=== PATIENT | female | born 1995 | race American Indian/Alaskan Native ===

== ENCOUNTER 2021-09-22 19:29 | Emergency (ER) | payer SELFPAY ==
[2021-09-22 19:42] VITALS: BP 168/118
--- NOTE | 2021-09-22 23:30 | Emergency Department Report ---
ED Laceration HPI - HPI Chief Complaint: Wound/Laceration Stated Complaint: TOE INJURY Time Seen by Provider: 09/22/21 19:57 Occurred When: Today Severity: mild Tetanus Status: Up to Date Laceration Symptoms: No Foreign Body Sensation, No Numbness, No Weakness, No Pain Other History: 25-year-old -[place] female was getting out of the shower when she slipped causing her foot to go and strike the corner wall between the second and third phalanges resulting in a laceration. She was advised to come to emergency department for possible suture but reports no pain and only scant bleeding. There is no history of numbness tingling neuropathy to her lower extremities she reports no known history of diabetes no immunocompromising conditions and takes no medications. ED Review of Systems ROS: Stated complaint: TOE INJURY Other details as noted in HPI Comment: All other systems reviewed and negative ED Past Medical Hx - Past Medical History Previous Medical History?: No Laceration Physical Exam - Exam General: Vital signs noted. No distress. Alert and acting appropriately. Wound Length (cm): 1 Laceration Location: Lower Extremity Full Body Front + Back: 1 - 1cm laceration between the second and third phalanges only visible wounds. Details of apart. No bleeding. Sensation is intact capillary refills are brisk. The lacerated site is fully closed with the phalanges and not being manipulated. There is no evidence of any foreign bodies Laceration Exam: Yes Normal Distal CMS, No Foreign Body, No Exposed Tendon, Vessel, or Nerve, No Tendon Injury ED Course Vital Signs 09/22/21 19:41 Temperature 98.6 F Pulse Rate 83 Respiratory 18 Rate Blood Pressure 168/118 [Left] O2 Sat by Pulse 98 Oximetry ED Medical Decision Making - Medical Decision Making 25-year-old female status post foot injury from resulting in laceration at this point time require any laceration repair with sutures in tissue adhesive not a great option in this region however that also is not necessary. Has been advised on proper wound care and follow-up for wound reevaluation. There is no active bleeding present. Pain is minimal to none. She discharged home with follow-up. Critical care attestation.: If time is entered above; I have spent that time in minutes in the direct care of this critically ill patient, excluding procedure time. ED Disposition Clinical Impression: Foot laceration Disposition: 01 HOME / SELF CARE / HOMELESS Is pt being admited?: No Does the pt Need Aspirin: No Condition: Stable Instructions: Laceration Care, Adult, [id number] Referrals: [facility] [Provider Group] - 3-5 Days
== END 2021-09-23 06:04 | disposition home or self-care (01) ==
LOC: ED 19:29
DX: S91.319A Laceration without foreign body, unspecified foot, initial encounter (principal); W18.30XA Fall on same level, unspecified, initial encounter; Y93.89 Activity, other specified; Y92.89 Other specified places as the place of occurrence of the external cause; Y99.8 Other external cause status
CPT/HCPCS: 99282